=== PATIENT | female | born 1990 | race Caucasian/White ===

== ENCOUNTER 2018-02-07 13:55 | Emergency (ER) | payer MEDICAID ==
[~2018-02-07] VITALS: Ht 170.2 cm; Wt 60.0 kg
[~2018-02-07 13:55] MED LIST: AUGMENTIN875TAB PO; NO HOME MEDS; ULTRAM50 M1 PO
[2018-02-07] MEDS ORDERED: TRAMADOL HYDROC50 MG PO (15:19)
[2018-02-07 15:50] VITALS: BP 118/66
== END 2018-02-07 15:50 | disposition home or self-care (01) ==
LOC: ED 13:55
DX: S62.612A Displaced fracture of proximal phalanx of right middle finger, initial encounter for closed fracture (principal); W54.8XXA Other contact with dog, initial encounter; Y93.89 Activity, other specified